=== PATIENT | female | born 1995 | race Caucasian/White ===

== ENCOUNTER 2018-02-26 23:27 | Emergency (ER) | payer OTHER ==
--- OUTSIDE RECORDS SUMMARY | 2018-02-26 23:40 | XMS REPORT | Continuity of Care Document ---
:1995 External Reference #:[id number] Author Name MARLEY Wright Address [address] [place] [address] Care Team Providers Name Role Phone Clara Huynh M.D., R.Natalie Primary Care Physician Unavailable Payers Type Date Identification Numbers Payment Provider Subscriber Policy Number: [id number] [facility] Silvestre Meza PayID: [id number] [place] [address] Advance Directives Description No Information Available Problems Description No Information Family History Date Family Member(s) Problem(s) Comments Onset: (age 28 Years) Father Well And Healthy Mother Anxiety Mother Depression Mother Overweight First Sister Well Social History Type Date Description Comments Sex Unknown Education Highest level completed, currently not attending 10th grade school Lives With The child lives with the DAD EVERY OTHER mother and stepfather.In WEEK-END BUT WITH HIGH The Past Had Visited [employer] CANNOT AFFORD TO BRING THEM TO HIM Smoke-Free Home is not smoke-free Pets several cats Tobacco Use Start: Unknown Patient is a current smoker, smokes every day Parental Involvement Sees dad about one rights currently monthly. 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 Allergies, Adverse Reactions, Alerts Date Description Reaction Status Severity Comments 04/19/2011 Amoxicillin rash Active 06/12/2002 NKDA Inactive Medications Medication Date Status Form Strength Qnty SIG Indications Ordering Provider Neomycin-Polymyx 01/19 Active Solution 1.75-1000 10ml instill 1 H10.9 Orestes in-Gramicidin /2018 0-.025 drop into Heluci junior MD eye every 4 hours for infection Remeron 09/04 Active Tablets 15mg 30tab 1 by mouth F51.04 s every night Chelita Meyer, at bedtime [employer] for sleep and depression Apri 11/16 Active Tablets 0.15-30mg 168ta 1 by mouth Z30.9 -mcg bs every day Chelita Meyer [employer] Fluticasone 12/21 Active Suspension 50mcg/Act 16gm 2 sprays J01.90 wnti Propionate into each Chelita Meyer, nostril [employer] once daily for rhinitis 07/23 Active Chewtabs 0.4-32.5m 90uni 1 po daily Gummies/Dha g ts Chelita Meyer Folic Acid [employer] Nexplanon 09/04 Active Implant 68mg inserted Rochelle09/04/14 Alaina remove [employer]C 09/04/17 Clarithromycin 01/25 Hx Tablets 500mg 20tab 1 by mouth J01.90 s twice a day Chelita Meyer, - for [employer] 02/04 sinusitis Amoxicillin/Clav 12/21 Hx Tablets 875-125mg 20tab 1 by mouth J01.90 ulanate s twice a day Chelita Meyer, Potassium - for 10 days [employer] 12/21 infection Clindamycin HCL 12/21 Hx Capsules 300mg 21cap take 1 J01.90 s capsule by Chelita Meyer, - mouth every [employer] 01/19 8 hours 7 days Mupirocin 09/28 Hx Ointment 2% 22gm 1 dose L01.00 apply to Chelita Meyer, - affected [employer] 10/08 area times a day Duloxetine HCL 09/[address] 60mg 30cap 1 by mouth F41.9 Part s every day Chelita Meyer, - [employer] 01/25 Cetirizine HCL 09/28 Hx Tablets 10mg 30tab 1 by mouth J30.9 s every day Chelita Meyer, - [employer] 12/21 Duloxetine HCL 08/[address] 30mg 30cap take one F41.9 Part s capsule by Chelita Meyer, - mouth every [employer] 09/28 morning for pain and depression And Anxiety Fluoxetine HCL 07/23 Hx Capsules 20mg 30cap 1 by mouth F41.9 Shawnti (PMDD) s daily for Chelita Meyer, - anxiety [employer] 08/27 Mupirocin 03/13 Hx Ointment 2% 22gm apply to L01.00 Thien affected [place] - area 3 III, 07/23 times daily [employer] for 5-7 days Venlafaxine HCL 02/12 Hx Tablets ER 37.5mg 30tab 1 by mouth F41.9 Shawnti ER 24HR s daily Chelita Meyer, - [employer] 07/23 Venlafaxine HCL 10/16 Hx Caps ER 75mg 30cap 1 by mouth F41.9 Shawnti ER 24HR s every day Chelita Meyer, - [employer] 07/23 Therapy Dog 10/16 Hx therapy dog F41.9 nt for anxiety Chelita Meyer, - [employer] 10/26 Meloxicam 09/23 Hx Tablets 15mg 30tab 1 by mouth K04.7 Shant s daily for Chelita Meyer, - pain, take [employer] 07/23 with food Oxycodone-Acetam 09/23 Hx Tablets 5-325mg 14tab 1 or 2 po K04.7 wnti inophen s QHS if Chelita Meyer, - needed for [employer] 10/03 severe pain Chlorhexidine 08/28 Hx Solution 0.12% 600ml rinse and K04.7 Shawnti Gluconate Oral /2015 spit 15ml Chelita Meyer, Rinse - bid [employer] 07/23 Tramadol HCL 08/28 Hx Tablets 50mg 30tab take one K04.7 Shant s tablet by Chelita Meyer, - mouth four [employer] 09/23 times a day as needed for pain; maximum daily dose=4 Venlafaxine HCL 08/22 Hx Caps ER 150mg 90cap take one F41.9 Shawnti ER 24HR s capsule by Chelita Meyer, - mouth daily [employer] 10/16 Sertraline HCL 07/24 Hx Tablets 25mg 30tab 1 by mouth F41.1 s every day Chelita Meyer, - [employer] 10/16 Venlafaxine HCL 07/08 Hx Tablets 75mg 30tab take 1 po F41.9 s every Chelita Meyer, - morning [employer] 08/22 Naproxen Sodium 06/26 Hx Tablets 550mg 60tab 1 by mouth s twice a day Chelita Meyer, - with food [employer] 07/23 if needed for pain Proventil HFA 06/17 Hx Aerosol 108(90Bas 18uni 2 puffs e) ts every 4 Chelita Meyer, - mcg/Act hours if [employer] 07/23 needed for cough, wheeze, shortness of breath Clindamycin HCL 06/17 Hx Capsules 150mg 30cap 1 po tid K04.7 s for 10 days Chelita Meyer, - [employer] 06/27 Tessalon Perles 06/16 Hx Capsules 100mg 45cap 1 take by J20.9 Orestes s mouth Heetderks - capsule MD Oleksandr 10/27 times per day for cough Sertraline HCL 05/15 Hx Tablets 100mg 45tab take one F41.1 s and one Chelita Meyer, - half tablet [employer] 07/24 (150mg) by mouth every day for anxiety Hydroxyzine HCL 05/15 Hx Tablets 10mg 60tab one or two F41.9 i s by mouth Chelita Meyer, - four times [employer] 10/27 a day if needed for anxiety Quetiapine 05/07 Hx Tablets 25mg 30tab 1 by mouth F41.9 s every night Chelita Meyer, - at bedtime [employer] 05/15 for anxiety and sleep Sertraline HCL 05/07 Hx Tablets 50mg 90tab take 1 po F41.1 s qam Chelita Meyer, - [employer] 05/15 Azithromycin 04/24 Hx Tablets 250mg 6tabs take 2 H66.92 Rochelle tablets Alaina, - today then [employer] 05/27 1 tablet /2015 daily for the next 4 days Nix Creme Rinse 03/11 Hx Liquid 1% 59ml apply to hair, rinse Chelita Meyer, - after 10 [employer] 05/27 minutes, comb well with fine tooth comb after rinsing Fluticasone 01/24 Hx Suspension 50mcg/Act 16gm 2 sprays J06.9 Shawnti Propionate into each Chelita Meyer, - nostril [employer] 10/27 once daily for rhinitis Ondansetron 01/24 Hx Tablets 4mg 12tab 1 by mouth A09 Dispers s three times Chelita Meyer, - a day as [employer] 05/27 needed nausea Zofran 12/17 Hx Tablets 4mg 30tab 1 tab by R11.2 Orestes s mouth three He[place]ks - times a day , 01/11 nausea Ibuprofen 11/15 Hx Tablets 600mg 60tab take 1 724.2 s tablet by Chelita Meyer, - mouth three [employer] 07/23 times a day /2016 with food as needed for pain Cyclobenzaprine 11/15 Hx Tablets 5mg 30tab 1 PO QHS 724.2 s prn muscle Chelita Meyer, - spasm [employer] 01/11 Clindamycin HCL 05/11 Hx Capsules 150mg 30cap 1 by mouth s three times Chelita Meyer, - a day for [employer] 05/21 10 days for abscess Sertraline HCL 01/29 Hx Tablets 100mg 135ta 1and 03/16 300.02 bs (150mg) by Chelita Meyer, - mouth every [employer] 05/07 day for depression and anxiety Benzoyl Peroxide 01/29 Hx Liquid 5% 237gm wash face 706.1 wcristina Wash twice daily Chelita Meyer, - [employer] 01/11 Paroex 01/29 Hx Solution 0.12% 150ml rinse and spit 10ml Chelita Meyer, - daily [employer] 01/11 Sertraline HCL 12/08 Hx Tablets 25mg 30tab Take One 300.02 wnt s Tablet By Chelita Meyer, - Mouth Every [employer] 01/29 Day For Week Then Increase To 2 Daily Thereafter Sertraline HCL 11/24 Hx Tablets 25mg 30tab 1 by mouth 300.02 nt s every day Chelita Meyer, - for one [employer] 12/08 week increase to 2 po daily Hydrocortisone 11/24 Hx Lotion 2.5% 1bott apply 782.1 le sparingly RHernando Meyer, - to itchy [employer] 01/11 area 2- times a day Quetiapine 11/03 Hx Tablets 50mg 30tab 1 by mouth 300.02 wnti Fumarate s every night Chelita Meyer, - at bedtime [employer] 11/24 Cefuroxime 10/06 Hx Tablets 500mg 20tab 1 by mouth 382.00 Shawnti Axetil s twice a day Chelita Meyer, - for ear [employer] 10/16 infection Clindamycin HCL 05/15 Hx Capsules 300mg 30cap 1 po tid s for 10 days Chelita Meyer, - for abscess [employer] 05/25 Chlorhexadine 05/15 Hx Solution 0.12% 150ml rinse and Shawnti Gluconate Oral /2013 spit 10ml Chelita Meyer, Rinse - daily [employer] 01/29 Citalopram 04/24 Hx Tablets 40mg 90tab 1 po qd 296.30 Shawnti Hydrobromide s Chelita Meyer, - [employer]IST[employer]C 11/24 Clindamycin HCL 04/24 Hx Capsules 150mg 30cap 1 po tid 528.3 Shawnti s for 10 days Chelita Meyer, - for abscess [employer] 05/04 Ibuprofen 04/24 Hx Tablets 600mg 30tab 1 three 528.3 w s times a day Chelita Meyer, - as needed [employer] 11/15 pain, take with food Citalopram 03/21 Hx Tablets 20mg 30tab 1 po qd for 296.30 wnt Hydrobromide s anxiety and Chelita Meyer, - depression [employer] 04/24 Clindamycin HCL 02/14 Hx Capsules 150mg 30cap 1 po tid 528.3 s for 10 days Chelita Meyer, - for abscess [employer] 03/21 Apri 11/22 Hx Tablets 0.15-30mg 28tab 1 po qd -mcg s Chelita Meyer, - [employer] 11/15 Proair HFA 11/22 Hx Aerosol 108(90Bas 1unit 2 puffs 786.07 e) s every 4-6 Chelita Meyer, - mcg/Act hours as [employer] 01/11 needed wheezing or shortness of breath Clarithromycin 06/14 Hx Tablets 250mg 20tab 1 tablet po 528.5 s bid x 10 Alaina, - days [employer] 11/22 Ibuprofen 06/14 Hx Tablets 600mg 60tab take1 528.5 s tablet qid Alaina, - prn pain, [employer] 04/24 take with food Lorazepam 06/14 Hx Tablets 0.5mg 2tabs 1 tabs po 1 528.5 hour prior Chelita Meyer, - to dental [employer] 01/11 procedure. Saline Nasal 12/28 Hx Solution 0.65% 1Bttl one or two 465.9 wnt [place] /2011 e sprays each Chelita Meyer, - nare prn [employer] 01/11 dryness or congestion Ibuprofen 12/28 Hx Tablets 200mg 90tab 2 po q6hr 465.9 s prn pain Chelita Meyer, - [employer] 01/11 Albuterol HFA 11/23 Hx 90mcg/Inh 1unit 2 puffs 786.07 s q4-6 hours Chelita Meyer, - prn [employer] 11/22 wheezing Clotrimazole 10/23 Hx Cream 1% 30gm apply to rash bid Clinton Pierson M.D. 11/23 Albuterol HFA 08/13 Hx 90mcg/Inh 2Inha 2 puffs 786.07 lers q4-6 hours Alaina, - prn [employer] 11/23 wheezing Excuse From 07/12 Hx Patient was 009.0 [facility] seen in our [place] Huynh office M.Natalie, 11/23 today due R.D. to illness. Should be excused from school today. Cefuroxime 07/06 Hx Tablets 250mg 20tab one po bid 528.3 Rochelle Axetil s for 10 days Alaina, [place] [employer]IST[employer] 11/23 Minocycline HCL 06/10 Hx Capsules 50mg 60cap 1 po bid 706.1 Shawnt s for one Chelita Meyer, - month then [employer] 01/11 1 po daily for acne Retin-A 06/10 Hx Gel 0.025% 1mont apply pea 706.1 Shawnt h sized Chelita Meyer, - amount to [employer] 01/11 face before bed for acne Adderall XR 05/25 Hx Caps ER 20mg 30cap 1 po daily 314.01 Shawnt 24HR s for add Chelita Meyer, - [employer]IST[employer]C 11/24 Prozac 05/25 Hx Capsules 10mg 90cap take one 296.30 s capsule by Chelita Meyer, - mouth every [employer] 03/21 morning for depression Clotrimazole/Bet 05/25 Hx Cream 1-0.05% 1tube apply to 691.8 Shawnti amethasone affected Chelita Meyer Dipropionate - area tid [employer]C 11/23 until resolved Azithromycin 04/19 Hx Tablets 250mg 6tabs take 2 Rochelle tablets Alaina, - today then [employer]IST[employer]C 04/25 1 tablet daily for the next 4 days Amoxicillin 04/18 Hx Tablets 500mg 30tab take 1 034.0 s tablet po Alaina, - tid x 10 [employer] 04/19 days Ovide 11/21 Hx Lotion 0.5% 1bott use as le jelena Meyer, - for head [employer] 11/23 lice, july repeat in 7-9 days if needed Nix Creme Rinse 10/19 Hx Liquid 1% 60ml apply to scalp after Pierson, - washing M.D. 11/21 hair. /2009 leave on 10 min. repeat in 7-10 days. Benzamycin 11/10 Hx Gel 1mont apply pea h sized Chelita Meyer, - amount to [employer]C 11/23 face bid Adderall XR 11/05 Hx Caps ER 10mg 30cap 1 po qd for 314.01 24HR s add Chelita Meyer, - [employer]IST[employer]C 05/25 Benzaclin 11/05 Hx Gel 1-5% 50gm use 706.1 topically A. - bid Damir, 06/10 [facility] Hill-Fr-Ftah 01/30 Hx Chewtabs 1mg 30uni 1 po daily ts for Chelita Meyer, - suppliment [employer] 11/23 Excuse For 12/20 Hx seen in [place] /2007 clinic Kenna, - today for M.D. 01/19 an illness /2007 that required absence from school starting 12/18/06 Keflex 09/18 Hx Capsules 250mg 30cap 1 po tid s for skin Chelita Meyer, - infection [employer] 09/28 Nitrofurantoin 08/24 Hx Capsules 100mg 14cap 1 PO bid 787.01 s For 7 Days Chelita Meyer, - For Urine [employer] 08/31 Infection Adderall 01/20 Hx Tablets 5mg 90tab 1 tab po qd 314.01 Jennifer s A. - Damir, 11/05 code b [facility] Vermox 03/28 Hx Chewtabs 100mg 2unit one po now Jennifer s and repeat A. - in one week Damir, 01/20 [facility] Nkri-pk-ebao 02/09 Hx Solution 1ml po qd V20.2 Jennifer A. - Damir, 05/17 [facility] Xfaj-JD-Qaxr 02/09 Hx Chewtabs 1mg 30uni chew one V20.2 Jennifer ts tab daily A. - , 01/20 [facility] Nasonex 05/01 Hx Suspension 50mcg 1unit 1spray each 381.81 Jennifer Intranasal [place] /2005 s nostril qd A. - , 01/20 [facility] Permethrin 04/03 Hx Lotion 1% 2Oz as directed Santhosh /Guicho Alonzo M.D. 01/20 STR` 02/16 Hx Jennifer A. - , 02/16 [facility] Strattera 02/16 Hx Capsules 10mg 90cap One PO qd 314.01 Jennifer s For Three A. - Days Then 01/20 Increase To [facility] Three Tabs PO qd Pyrethrins 12/18 Hx 0.33% 150cc apply to Jennifer Shampoo area until A. - thoroughly 04/01 wet, [facility] /2005 massage in, wait for 10 mins and water to form lather , shampoo and rinse Permethrin 11/13 Hx Lotion 1% 59ml shampoo 132.0 Jennifer into head A. - leave on 04/01 for 10 mins [facility] /2005 and rinse. Referral To 11/13 Hx evalutate V40.3 Jennifer Therapist and treat A. - behavior 04/01 problems. [facility] /2005 consider family therapy Concerta 08/14 Hx Tablets 18mg 30tab one po qd 314.01 Jennfier s in the am A. - , 02/16 [facility] Ritalin La 07/03 Hx Capsules 10mg 30cap one cap po Jennifer s qd. do not A. - open , 08/14 capsule [facility] Ritalin 05/08 Hx Tablets 5mg 30tab 03/16 tab po 314.01 Jennifer s at 7:30 and A. - 03/16 tad at Damir, 08/14 12:30 pm [facility] /2004 for one week then increase to one po bid Keflex 12/25 Hx Suspension 250mg/5 200cc one tsp po 785.6 [place] /2004 ML qid or two K.W. - tsp. po bid Christopher, 03/24 for 10 days M.D. Ovide 10/17 Hx Lotion 0.5% QS apply to dry hair, A. - air dry. , 09/05 wash 8 [facility] /2004 hours later. may repeat in 7 days if still have live lice Hydrocortisone 11/28 Hx Cream 2.5% 30gm Apply prn For Itching Kenna, - qd M.D. 01/20 Amoxil 06/12 Hx Suspensi 400mg/ml 100ml 1 tsp bid x10 days Carlyle, - [employer] 11/28 Zithromax 12/01 Hx Suspensi 200mg/TSP 15ml 1TSP Today Then 03/16 Carlyle, - TSP Daily [employer] 06/12 For 4 Days Bqry-HX-Ajiv 08/24 Hx Chewtabs O.5 mg 30uni one qd V20.2 ts A. - Damir, 02/09 [facility] Medications Administered in Office Medication Date Status Form Strength Qnty SIG Indications Ordering Provider Medroxyprogesteron 06/21 Administered Injection Lab and e Acetate 1 MG Office (Depo-Provera) Services Injection Medroxyprogesteron 06/21 Administered Injection Lab and e Acetate 1 MG Office (Depo-Provera) Services Injection Medroxyprogesteron 03/26 Administered Injection Lab and e Acetate 1 MG Office (Depo-Provera) Services Injection Medroxyprogesteron 01/08 Administered Injection Lab and e Acetate 1 MG /2013 Office (Depo-Provera) Services Injection Medroxyprogesteron 10/23 Administered Injection Lab and e Acetate 1 MG /2013 Office (Depo-Provera) Services Injection Medroxyprogesteron 08/04 Administered Injection Lab and e Acetate 1 MG /2013 Office (Depo-Provera) Services Injection Varicella Disease 03/29 Administered Injection Faisal /MARLEY Ram Immunizations CPT Code Status Date Vaccine Lot # [id number] Given 02/11/2017 Influenza Virus Vaccine, Quadrivalent, 3 Yr > [id number] Quad, Preserv Free 70163 Given 01/11/2015 Menactra VFC (Meningicoccal Conjugate Vaccine) [id number] 94977 Given 01/11/2015 Varicella (Chicken Pox) Vacc VFC [id number] 02991 Given 01/11/2015 HPV Vaccine 9 - (Gardasil-9) VFC [id number] 66683 Given 11/15/2014 Varicella (Chicken Pox) Vacc VFC [id number] 22541 Given 10/06/2013 HPV Vaccine, Gardasil - VFC [id number] 68484 Given 05/15/2013 HPV Vaccine, Gardasil - VFC [id number] 30799 Given 11/17/2007 Menactra VFC (Meningicoccal Conjugate Vaccine) [id number] 00582 Given 11/17/2007 Tdap VFC (Adacel) [id number] 24061 Given 10/06/2000 MMR (Measles,Mumps,Rubella) 80336 Given 10/06/2000 Opv (Poliovirus,Oral) 64002 Given 10/06/2000 DPT 72685 Given 02/04/1998 Opv (Poliovirus,Oral) 92001 Given 02/04/1998 DPT 47680 Given 02/04/1998 Hib (Hemophilus Influenza B) (Acthib) 69673 Given 08/24/1997 MMR (Measles,Mumps,Rubella) 64845 Given 02/22/1997 Hep B Vaccine, Ped/Adol Dose 3 Dose VFC (Engerix or Recombivax) 42977 Given 02/22/1997 DPT 62311 Given 02/22/1997 Hib (Hemophilus Influenza B) (Acthib) 47430 Given 1996 Opv (Poliovirus,Oral) 51779 Given 1996 DPT 41933 Given 1996 Hib (Hemophilus Influenza B) (Acthib) 38061 Given 1996 DPT 81780 Given 1996 Hib (Hemophilus Influenza B) (Acthib) 06161 Given 1996 Hep B Vaccine, Ped/Adol Dose 3 Dose VFC (Engerix or Recombivax) 86175 Given 1996 Opv (Poliovirus,Oral) 52711 Given 1996 Hep B Vaccine, Ped/Adol Dose 3 Dose VFC (Engerix or Recombivax) 75186 Refused 07/25/2015 Influenza Virus Vaccine, Quadrivalent, 3 Yr > Quad , Preserv Free Vital Signs Date Vital Result Comment 01/25/2018 10:50am Weight 202.00 lb Weight 91.627 kg BP Systolic 110 mmHg BP Diastolic 70 mmHg Heart Rate 80 /min Body Temperature 97.4 F Respiratory Rate 16 /min O2 % BldC Oximetry 98 % 01/19/2018 11:14am Weight 196.00 lb Weight 88.906 kg BP Systolic 108 mmHg BP Diastolic 70 mmHg Heart Rate 78 /min Body Temperature 97.6 F Respiratory Rate 16 /min O2 % BldC Oximetry 98 % 11/16/2017 10:17am Weight 188.00 lb Weight 85.277 kg BP Systolic 110 mmHg BP Diastolic 72 mmHg Heart Rate 78 /min Body Temperature 97.5 F Respiratory Rate 16 /min 12/21/2016 3:59pm Weight 195.00 lb Weight 88.452 kg BP Systolic 110 mmHg BP Diastolic 70 mmHg Heart Rate 72 /min Body Temperature 97.5 F Respiratory Rate 14 /min 09/28/2016 2:56pm Weight 184.00 lb Weight 83.462 kg BP Systolic 100 mmHg BP Diastolic 74 mmHg Heart Rate 92 /min Body Temperature 97.5 F Respiratory Rate 14 /min 08/27/2016 3:19pm Weight 185.00 lb Weight 83.916 kg BP Systolic 116 mmHg BP Diastolic 74 mmHg Heart Rate 85 /min Body Temperature 98.4 F Respiratory Rate 16 /min O2 % BldC Oximetry 98 % 07/23/2016 3:46pm Weight 186.00 lb Weight 84.370 kg BP Systolic 120 mmHg BP Diastolic 72 mmHg Heart Rate 68 /min Body Temperature 98.0 F Respiratory Rate 16 /min 03/24/2016 2:17pm Weight 186.00 lb Weight 84.370 kg BP Systolic 110 mmHg BP Diastolic 60 mmHg Heart Rate 85 /min Body Temperature 97.4 F Respiratory Rate 16 /min O2 % BldC Oximetry 99 % 03/13/2016 2:41pm Weight 190.00 lb Weight 86.184 kg BP Systolic 100 mmHg BP Diastolic 70 mmHg Heart Rate 60 /min Body Temperature 99.0 F Respiratory Rate 12 /min 02/13/2016 3:11pm Weight 190.00 lb Weight 86.184 kg BP Systolic 110 mmHg BP Diastolic 80 mmHg Heart Rate 80 /min Body Temperature 98.3 F Respiratory Rate 12 /min 01/16/2016 3:27pm Weight 194.00 lb Weight 87.998 kg BP Systolic 100 mmHg BP Diastolic 70 mmHg Heart Rate 80 /min Body Temperature 98.1 F 10/31/2015 11:38am Weight 185.00 lb Weight 83.916 kg BP Systolic 91 mmHg BP Diastolic 65 mmHg Heart Rate 80 /min Body Temperature 98.3 F 10/28/2015 2:10pm Weight 190.00 lb Weight 86.184 kg BP Systolic 100 mmHg BP Diastolic 70 mmHg Heart Rate 91 /min Body Temperature 98.5 F ibuprofen at 130pm Respiratory Rate 16 /min 10/17/2015 11:12am Weight 189.00 lb Weight 85.730 kg BP Systolic 120 mmHg BP Diastolic 70 mmHg Heart Rate 64 /min Body Temperature 98.3 F Respiratory Rate 20 /min 09/24/2015 3:01pm Weight 191.00 lb Weight 86.638 kg BP Systolic 114 mmHg BP Diastolic 64 mmHg Heart Rate 88 /min 08/29/2015 4:03pm Weight 189.00 lb Weight 85.730 kg BP Systolic 122 mmHg BP Diastolic 80 mmHg Heart Rate 88 /min Body Temperature 99.3 F 08/23/2015 4:37pm Weight 190.00 lb Weight 86.184 kg BP Systolic 104 mmHg BP Diastolic 64 mmHg Heart Rate 80 /min 07/25/2015 2:54pm Weight 190.00 lb Weight 86.184 kg BP Systolic 96 mmHg BP Diastolic 60 mmHg Heart Rate 92 /min Weight Percentile 96th 07/09/2015 11:34am Weight 190.00 lb Weight 86.184 kg BP Systolic 100 mmHg BP Diastolic 70 mmHg Heart Rate 95 /min Body Temperature 97.8 F Weight Percentile 96th O2 % BldC Oximetry 98 % 06/28/2015 2:51pm Weight 189.00 lb Weight 85.730 kg BP Systolic 124 mmHg BP Diastolic 62 mmHg Heart Rate 90 /min Body Temperature 98.4 F Weight Percentile 96th O2 % BldC Oximetry 98 % 06/18/2015 2:59pm Weight 192.00 lb Weight 87.091 kg BP Systolic 112 mmHg BP Diastolic 70 mmHg Heart Rate 84 /min Body Temperature 97.7 F Weight Percentile 97th O2 % BldC Oximetry 98 % 06/17/2015 10:45am Weight 192.00 lb Weight 87.091 kg BP Systolic 120 mmHg BP Diastolic 81 mmHg Heart Rate 90 /min Body Temperature 98.7 F Weight Percentile 97th O2 % BldC Oximetry 98 % 05/28/2015 11:02am Weight 191.00 lb Weight 86.638 kg BP Systolic 108 mmHg BP Diastolic 70 mmHg Heart Rate 84 /min Body Temperature 97.7 F Weight Percentile 97th 05/16/2015 1:52pm Weight 193.00 lb Weight 87.545 kg BP Systolic 100 mmHg BP Diastolic 54 mmHg Heart Rate 95 /min Weight Percentile 97th 05/07/2015 11:10am Weight 195.00 lb Weight 88.452 kg BP Systolic 116 mmHg BP Diastolic 74 mmHg Heart Rate 112 /min Body Temperature 97.0 F Weight Percentile 97th 04/24/2015 2:31pm Weight 197.00 lb Weight 89.359 kg BP Systolic 140 mmHg BP Diastolic 85 mmHg Heart Rate 108 /min Body Temperature 97.7 F Weight Percentile 97th O2 % BldC Oximetry 98 % 01/24/2015 2:59pm Weight 191.00 lb Weight 86.638 kg BP Systolic 116 mmHg BP Diastolic 68 mmHg Heart Rate 96 /min Body Temperature 98.4 F Weight Percentile 97th 01/11/2015 4:32pm Weight 189.00 lb Weight 85.730 kg BP Systolic 110 mmHg BP Diastolic 80 mmHg Heart Rate 96 /min Height 61 inches 5'1" Height Percentile 10 % Weight Percentile 97th BMI (Body Mass Index) 35.7 kg/m2 Body Mass Index Percentile 98 % Right Visual Acuity Distance 20/25 Left Visual Acuity Distance 20/25 Both Visual Acuity Distance 20/25 12/17/2014 5:25pm Weight 192.00 lb Weight 87.091 kg BP Systolic 112 mmHg BP Diastolic 66 mmHg Heart Rate 92 /min Body Temperature 99.0 F Weight Percentile 97th 11/15/2014 10:52am Weight 190.00 lb Weight 86.184 kg BP Systolic 120 mmHg BP Diastolic 80 mmHg Heart Rate 80 /min Body Temperature 98.1 F Weight Percentile 97th 10/11/2014 11:03am Weight 191.00 lb Weight 86.638 kg BP Systolic 110 mmHg BP Diastolic 70 mmHg Heart Rate 76 /min Weight Percentile 97th Last Menstrual Period [id number] spotting 09/04/2014 3:27pm Weight 187.00 lb Weight 84.823 kg BP Systolic 140 mmHg BP Diastolic 58 mmHg Heart Rate 100 /min Weight Percentile 96th 01/29/2014 3:57pm Weight 163.00 lb Weight 73.937 kg BP Systolic 108 mmHg BP Diastolic 76 mmHg Heart Rate 92 /min Height 61 inches 5'1" Height Percentile 11 % Weight Percentile 92nd BMI (Body Mass Index) 30.8 kg/m2 Body Mass Index Percentile 96 % 12/08/2013 3:04pm Weight 160.00 lb Weight 72.576 kg BP Systolic 114 mmHg BP Diastolic 74 mmHg Heart Rate 92 /min Weight Percentile 9111/24/2013 3:23pm Weight 161.00 lb Weight 73.030 kg BP Systolic 126 mmHg BP Diastolic 74 mmHg Heart Rate 76 /min Weight Percentile 9111/03/2013 3:17pm Weight 157.00 lb Weight 71.215 kg BP Systolic 120 mmHg BP Diastolic 60 mmHg Heart Rate 80 /min Weight Percentile 8910/06/2013 4:14pm Weight 159.00 lb Weight 72.122 kg BP Systolic 125 mmHg BP Diastolic 60 mmHg Heart Rate 88 /min Body Temperature 99.1 F Weight Percentile 90th Last Menstrual Period [id number] Depo 07/31/2013 4:39pm Weight 149.00 lb Weight 67.586 kg BP Systolic 118 mmHg BP Diastolic 54 mmHg Heart Rate 64 /min Body Temperature 98.2 F Weight Percentile 85th 05/15/2013 2:29pm Weight 138.00 lb Weight 62.597 kg BP Systolic 118 mmHg BP Diastolic 60 mmHg Heart Rate 72 /min Weight Percentile 7604/24/2013 3:38pm Weight 136.00 lb Weight 61.690 kg BP Systolic 94 mmHg BP Diastolic 60 mmHg Heart Rate 92 /min Body Temperature 98.9 F Weight Percentile 7403/21/2013 2:00pm Weight 133.00 lb Weight 60.329 kg BP Systolic 92 mmHg BP Diastolic 56 mmHg Heart Rate 78 /min Weight Percentile 71st 02/14/2013 2:49pm Weight 134.00 lb Weight 60.782 kg BP Systolic 116 mmHg BP Diastolic 62 mmHg Heart Rate 96 /min Body Temperature 97.2 F Height 60 inches 5'0" Height Percentile 5 % Weight Percentile 72nd BMI (Body Mass Index) 26.2 kg/m2 Body Mass Index Percentile 89 % 11/22/2012 3:39pm Weight 133.00 lb Weight 60.329 kg BP Systolic 110 mmHg BP Diastolic 70 mmHg Heart Rate 96 /min Body Temperature 99.0 F Height 61 inches 5'1" Height Percentile 11 % Weight Percentile 72nd BMI (Body Mass Index) 25.1 kg/m2 Body Mass Index Percentile 86 % O2 % BldC Oximetry 98 % 06/14/2012 11:53am Weight 131.00 lb Weight 59.422 kg BP Systolic 108 mmHg BP Diastolic 70 mmHg Heart Rate 96 /min Body Temperature 97.1 F Weight Percentile 7112/29/2011 3:05pm Weight 138.00 lb Weight 62.597 kg BP Systolic 120 mmHg BP Diastolic 68 mmHg Heart Rate 72 /min Weight Percentile 80th 11/24/2011 4:05pm Weight 131.00 lb Weight 59.422 kg BP Systolic 118 mmHg BP Diastolic 68 mmHg Heart Rate 68 /min Body Temperature 98.2 F Height 60.25 inches 5'0.25" Height Percentile 8 % Weight Percentile 73rd BMI (Body Mass Index) 25.4 kg/m2 Body Mass Index Percentile 89 % Right Visual Acuity Distance 20/40 Left Visual Acuity Distance 20/25 Both Visual Acuity Distance 20/25 Last Menstrual Period [id number] 08/14/2011 11:35am Weight 123.00 lb Weight 55.793 kg BP Systolic 102 mmHg BP Diastolic 70 mmHg Heart Rate 76 /min Body Temperature 98.1 F Weight Percentile 64th 07/13/2011 1:22pm Weight 123.00 lb Weight 55.793 kg BP Systolic 90 mmHg BP Diastolic 54 mmHg Heart Rate 104 /min Weight Percentile 6507/07/2011 4:52pm Weight 128.00 lb Weight 58.061 kg BP Systolic 100 mmHg BP Diastolic 70 mmHg Body Temperature 97.7 F Weight Percentile 72nd 06/11/2011 3:30pm Weight 120.00 lb Weight 54.432 kg BP Systolic 110 mmHg BP Diastolic 70 mmHg Heart Rate 100 /min Weight Percentile 6105/26/2011 3:29pm Weight 122.00 lb Weight 55.339 kg Heart Rate 72 /min Body Temperature 98.0 F Weight Percentile 6504/18/2011 10:33am Weight 121.00 lb Weight 54.886 kg BP Systolic 100 mmHg BP Diastolic 60 mmHg Body Temperature 98.1 F Weight Percentile 64th 01/23/2010 11:20am Weight 107.00 lb Weight 48.535 kg BP Systolic 100 mmHg BP Diastolic 62 mmHg Heart Rate 60 /min Height 60 inches 5'0" Height Percentile 17 % Weight Percentile 55th BMI (Body Mass Index) 20.9 kg/m2 Body Mass Index Percentile 72 % 11/21/2009 4:55pm Weight 108.00 lb Weight 48.989 kg BP Systolic 102 mmHg BP Diastolic 70 mmHg Heart Rate 88 /min Body Temperature 98.0 F Weight Percentile 5906/12/2009 3:12pm Weight 108.00 lb Weight 48.989 kg BP Systolic 118 mmHg BP Diastolic 80 mmHg Heart Rate 80 /min Weight Percentile 6601/17/2009 2:16pm Weight 106.00 lb Weight 48.082 kg BP Systolic 120 mmHg BP Diastolic 74 mmHg Heart Rate 80 /min Weight Percentile 6911/05/2008 2:45pm Weight 104.00 lb Weight 47.174 kg BP Systolic 98 mmHg BP Diastolic 68 mmHg Heart Rate 96 /min Weight Percentile 6912/21/2007 10:47am Weight 81.00 lb Weight 36.742 kg Body Temperature 97.8 F oral Weight Percentile 4010/21/2007 10:05am Weight 76.00 lb Weight 34.474 kg BP Systolic 96 mmHg BP Diastolic 72 mmHg Heart Rate 90 /min Weight Percentile 3209/19/2007 3:30pm Weight 76.00 lb Weight 34.474 kg Body Temperature 99.3 F Weight Percentile 09/01/2007 1:44pm Weight 74.00 lb Weight 33.566 kg BP Systolic 98 mmHg BP Diastolic 64 mmHg Heart Rate 109 /min Body Temperature 98.5 F Weight Percentile 08/25/2007 3:28pm Weight 75.00 lb Weight 34.020 kg BP Systolic 94 mmHg BP Diastolic 72 mmHg Heart Rate 84 /min Body Temperature 98.5 F Weight Percentile 05/11/2007 3:59pm Weight 76.00 lb Weight 34.474 kg BP Systolic 88 mmHg BP Diastolic 60 mmHg Heart Rate 84 /min Weight Percentile 42nd 02/10/2007 3:41pm Weight 76.00 lb Weight 34.474 kg BP Systolic 94 mmHg BP Diastolic 70 mmHg Heart Rate 76 /min Weight Percentile 48th 01/20/2007 3:38pm Weight 77.00 lb Weight 34.927 kg Heart Rate 86 /min Height 53 inches 4'5" Height Percentile 21 % Weight Percentile 52nd BMI (Body Mass Index) 19.3 kg/m2 Body Mass Index Percentile 80 % Right Visual Acuity Distance 20/25 Left Visual Acuity Distance 20/25 12/02/2006 9:21am Weight 72.00 lb Weight 32.659 kg Body Temperature 97.6 F Height 53 inches 4'5" Height Percentile 24 % Weight Percentile 42nd BMI (Body Mass Index) 18.0 kg/m2 Body Mass Index Percentile 66 % 04/13/2006 9:42am Weight 69.00 lb Weight 31.298 kg Body Temperature 101.0 F Weight Percentile 49th 02/16/2006 2:40pm Weight 67.00 lb Weight 30.391 kg Body Temperature 98.2 F Weight Percentile 47th 02/09/2006 4:13pm Weight 66.00 lb Weight 29.938 kg BP Systolic 98 mmHg BP Diastolic 50 mmHg Heart Rate 84 /min Height 50 inches 4'2" Height Percentile 9 % Weight Percentile 45th BMI (Body Mass Index) 18.6 kg/m2 Body Mass Index Percentile 81 % Right Visual Acuity Distance 20/20 Left Visual Acuity Distance 20/25 05/01/2005 3:10pm Weight 59.00 lb Weight 26.762 kg Body Temperature 97.5 F Weight Percentile 41st 02/16/2005 3:17pm Weight 57.00 lb Weight 25.855 kg BP Systolic 90 mmHg BP Diastolic 60 mmHg Heart Rate 82 /min Respiratory Rate 18 /min Height 49 inches 4'1" Height Percentile 16 % Weight Percentile 39th BMI (Body Mass Index) 16.7 kg/m2 Body Mass Index Percentile 63 % Right Visual Acuity Distance 20/25 Left Visual Acuity Distance 20/25 11/13/2004 3:36pm Weight 56.00 lb Weight 25.402 kg BP Systolic 84 mmHg BP Diastolic 56 mmHg Heart Rate 76 /min Height 47 inches 3'11" Height Percentile 5 % Weight Percentile 42nd BMI (Body Mass Index) 17.8 kg/m2 Body Mass Index Percentile 83 % 09/05/2004 2:09pm Weight 54.00 lb Weight 24.494 kg Height 47 inches 3'11" Height Percentile 7 % Weight Percentile 39th BMI (Body Mass Index) 17.2 kg/m2 Body Mass Index Percentile 76 % 08/14/2004 3:54pm Weight 54.00 lb Weight 24.494 kg BP Systolic 84 mmHg BP Diastolic 58 mmHg Height 47 inches 3'11" Height Percentile 8 % Weight Percentile 40th BMI (Body Mass Index) 17.2 kg/m2 Body Mass Index Percentile 76 % 06/02/2004 4:03pm Weight 55.00 lb Weight 24.948 kg Body Temperature 97.9 F Respiratory Rate 18 /min Weight Percentile 50th 05/08/2004 2:18pm Weight 53.00 lb Weight 24.041 kg Height 47 inches 3'11" Height Percentile 13 % Weight Percentile 44th BMI (Body Mass Index) 16.9 kg/m2 Body Mass Index Percentile 74 % 03/24/2004 3:58pm Weight 55.00 lb Weight 24.948 kg Weight Percentile 56th 12/26/2003 4:22pm Weight 51.00 lb Weight 23.134 kg Body Temperature 98.4 F Weight Percentile 45th 05/03/2003 3:12pm Weight 47.00 lb Weight 21.319 kg Body Temperature 98.6 F Weight Percentile 43rd 12/28/2002 2:49pm Weight 45.00 lb Weight 20.412 kg BP Systolic 90 mmHg BP Diastolic 60 mmHg Heart Rate 80 /min Respiratory Rate 20 /min Height 42.50 inches Height Percentile 5 % Weight Percentile 42nd BMI (Body Mass Index) 17.5 kg/m2 Right Visual Acuity Distance 20/20 Left Visual Acuity Distance 20/20 11/28/2002 3:28pm Weight 46.00 lb Weight 20.866 kg Body Temperature 99.0 F Weight Percentile 50th 10/19/2002 4:07pm Weight 443.00 lb Weight 200.945 kg Body Temperature 98.7 F Weight Percentile >95th 06/27/2002 10:05am Weight 44.00 lb Weight 19.958 kg Body Temperature 99.0 F Weight Percentile 52nd 06/12/2002 3:01pm Weight 44.00 lb Weight 19.958 kg Body Temperature 99.2 F Weight Percentile 53rd 03/07/2002 9:59am Weight 41.00 lb Weight 18.600 kg Body Temperature 98.7 F Weight Percentile 43rd 12/01/2001 10:35am Weight 42.00 lb Weight 19.100 kg Body Temperature 99.9 F Weight Percentile 58th 08/24/2001 3:32pm Weight 39.50 lb BP Systolic 82 mmHg BP Diastolic 50 mmHg Heart Rate 104 /min Height 41 inches Height Percentile 25 % Weight Percentile 48th BMI (Body Mass Index) 16.6 kg/m2 Results Test Date Facility Test Result H/L Range Note GC/Chlamydia 08/27/2016 [facility] Chlamydia Negative Negative Amplified Rna [phone] trachomatis Rna Neisseria gonorrhoeae (GC) Rna Negative Negative CBC Auto 05/15/2015 [facility] White Blood 11.1 10^3/ uL High 3.5-10.8 Diff [phone] Count Red Blood Count 5.12 10^6/uL 4.0-5.4 Hemoglobin 14.8 g/dL 12.0-16.0 Hematocrit 46 % 35-47 Mean Corpuscular Volume 90 fL 80-97 Mean Corpuscular Hemoglobin 29 pg 27-31 Mean Corpuscular HGB Conc 32 g/dL 31-36 Red Cell Distribution Width 14 % 10.5-15 Platelet Count 294 10^3/uL 150-450 Mean Platelet Volume 8 um3 7.4-10.4 Abs Neutrophils 6.6 10^3/uL 1.5-7.7 Abs Lymphocytes 3.5 10^3/uL 1.0-4.8 Abs Monocytes 0.7 10^3/uL 0-0.8 Abs Eosinophils 0.1 10^3/uL 0-0.6 Abs Basophils 0.3 10^3/uL High 0-0.2 Abs Nucleated RBC 0.01 10^3/uL Granulocyte % 59.5 % 38-83 Lymphocyte % 31.2 % 25-47 Monocyte % 6.1 % 1-9 Eosinophil % 0.8 % 0-6 Basophil % 2.4 % High 0-2 Nucleated Red Blood Cells % 0 Comp Metabolic Panel 05/15/2015 [facility] Sodium 137 mmol/L 133-145 [phone] Potassium 3.4 mmol/L Low 3.5-5.0 Chloride 107 mmol/L 101-111 Co2 Carbon Dioxide 22 mmol/L 22-32 Anion Gap 8 mmol/L 2-11 Glucose 91 mg/dL 70-100 Blood Urea Nitrogen 6 mg/dL 6-24 Creatinine 0.84 mg/dL 0.51-0.95 BUN/Creatinine Ratio 7.1 Low 8-20 Calcium 9.9 mg/dL 8.6-10.3 Total Protein 8.4 g/dL 6.4-8.9 Albumin 4.6 g/dL 3.2-5.2 Globulin 3.8 g/dL 2-4 Albumin/Globulin Ratio 1.2 1-3 Total Bilirubin 0.40 mg/dL 0.2-1.0 Alkaline Phosphatase 43 U/L 34-104 Alt 48 U/L 7-52 Ast 33 U/L 13-39 Egfr Non- 88.3 >60 Egfr 113.6 >60 1 Laboratory test 05/15/2015 [facility] Acetaminophen < 15 g/mL 2 finding [phone] Alcohol < 10 mg/dL <10 Salicylate < 2.50 mg/dL <30 TSH (Thyroid Stimulating Horm) 1.92 ?IU/mL 0.34-5.60 Urinalysis Profile 05/15/2015 [facility] Urine Color Yellow [phone] Urine Appearance Cloudy Urine Specific [place] 1.006 Low 1.010-1.030 Urine pH 6.0 5-9 Urine Urobilinogen Negative Negative Urine Ketones Negative Negative Urine Protein Negative Negative Urine Leukocytes Trace Negative Urine Blood 1+ Negative Urine Nitrite Negative Negative Urine Bilirubin Negative Negative Urine Glucose Negative Negative Urine White Blood Cell Trace(0-5/hpf) Absent Urine Red Blood Cell 1+(3-5/hpf) Absent Urine Bacteria 1+ Absent Urine Squamous Epithelial Cell Present Absent Laboratory test 05/15/2015 [facility] HCG < 0.60 3 finding [phone] mIU/mL Urine Drug SCR 05/15/2015 [facility] Amphetamine Ur None None ED & Pain [phone] Screen Detected Detect Clinic Barbiturates Urine Screen None Detected None Detect Benzodiazepine Urine Screen None Detected None Detect Urine Cannabinoids Screen None Detected None Detect Urine Cocaine Screen None Detected None Detect Urine Opiates Screen None Detected None Detect Urine Phencyclidine Screen None Detected None Detect 4 Laboratory test 05/15/2015 [facility] Urine Culture SEE RESULT 5 finding [phone] BELOW Laboratory test 04/24/2015 [facility] Strep Screen NEG Neg finding (607)- - Urine DIP 01/24/2015 In House Lab Specific 1.015 1.01-1.0 (607)- - [place] 2 Urine pH 8 High 5-6 Leukocytes ++ Neg Urine Nitrites NEG Neg Total Protein, Urine NEG Neg Urine Glucose NORM Norm Urine Ketones NEG Neg Urobilinogen NORM Norm Urine Bilirubin NEG Neg Urine Blood 50 High Neg Syphilis Screen 01/11/2015 [facility] Pediatric/ Maternal NO [phone] Syphilis IgG Nonreactive Nonreactive 6 RPR TNP Nonreactive RPR Titer TNP HIV 1/2 AB 01/11/2015 [facility] HIV 1 2 Nonreactive Nonreactive 7 Evaluation [phone] Antibody Laboratory 01/11/2015 [facility] Hemoglobin 5.4 % Less than 6.0 8 test finding [phone] A1c (Glyco HGB) CBC Auto Diff 12/16/2014 [facility] White Blood 10.3 10^3/uL 4.8-10.8 [phone] Count Red Blood Count 4.94 10^6/uL 4.0-5.4 Hemoglobin 14.5 g/dL 12.0-16.0 Hematocrit 44 % 35-47 Mean Corpuscular Volume 90 fL 80-97 Mean Corpuscular Hemoglobin 29 pg 27-31 Mean Corpuscular HGB Conc 33 g/dL 31-36 Red Cell Distribution Width 14 % 10.5-15 Platelet Count 283 10^3/uL 150-450 Mean Platelet Volume 8 um3 7.4-10.4 Abs Neutrophils 5.6 10^3/uL 1.5-7.7 Abs Lymphocytes 3.6 10^3/uL 1.0-4.8 Abs Monocytes 0.9 10^3/uL High 0-0.8 Abs Eosinophils 0.1 10^3/uL 0-0.6 Abs Basophils 0.1 10^3/uL 0-0.2 Abs Nucleated RBC 0 10^3/uL Granulocyte % 54.5 % 38-83 Lymphocyte % 34.9 % 25-47 Monocyte % 8.7 % 1-9 Eosinophil % 1.1 % 0-6 Basophil % 0.8 % 0-2 Nucleated Red Blood Cells % 0 Urinalysis Profile 12/16/2014 [facility] Urine Color Yellow [phone] Urine Appearance Cloudy Urine Specific [place] 1.014 1.010-1.030 Urine pH 7.0 5-9 Urine Urobilinogen Negative Negative Urine Ketones Negative Negative Urine Protein Negative Negative Urine Leukocytes Negative Negative Urine Blood Negative Negative Urine Nitrite Negative Negative Urine Bilirubin Negative Negative Urine Glucose Negative Negative Comp Metabolic Panel 12/16/2014 [facility] Sodium 137 mmol/L 133-145 [phone] Chloride 105 mmol/L 101-111 Co2 Carbon Dioxide 23 mmol/L 22-32 Glucose 82 mg/dL 70-100 Blood Urea Nitrogen 9 mg/dL 6-24 Creatinine 0.87 mg/dL 0.51-0.95 BUN/Creatinine Ratio 10.3 8-20 Calcium 9.9 mg/dL 8.6-10.3 Total Protein 7.9 g/dL 6.4-8.9 Albumin 4.5 g/dL 3.2-5.2 Globulin 3.4 g/dL 2-4 Albumin/Globulin Ratio 1.3 1-3 Total Bilirubin 0.30 mg/dL 0.2-1.0 Alkaline Phosphatase 49 U/L 34-104 Alt 30 U/L 7-52 Egfr Non- 84.8 >60 Egfr 109.1 >60 9 Potassium 3.8 mmol/L 3.5-5.0 Anion Gap 9 mmol/L 2-11 Ast 23 U/L 13-39 Laboratory test 12/16/2014 [facility] Lipase 44 U/L 11.0-82.0 finding [phone] C Reactive Protein 11.18 mg/L High < 5.00 10 Urine DIP 11/15/2014 [facility] House Lab Specific [place] 1.020 1.01-1.02 (607)- - Urine pH 5 5-6 Leukocytes ++ Neg Urine Nitrites NEG Neg Total Protein, Urine TRACE Neg Urine Glucose NORM' Norm Urine Ketones NEG Neg Urobilinogen NORM Norm Urine Bilirubin NEG Neg Urine Blood 50 High Neg Lipid Profile 10/11/2014 [facility] Triglycerides 60 mg/dL 11 (Trig/Chol/HDL) [phone] Cholesterol 106 mg/dL 12 HDL Cholesterol 40.1 mg/dL 13 LDL Cholesterol 54 mg/dL 14 Laboratory test 10/11/2014 [facility] TSH (Thyroid 2.48 ?IU/mL 0.34-5.60 finding [phone] Stim Horm) Hemoglobin A1c (Glyco HGB) 5.9 % Less than 6.0 15 Laboratory test 09/04/2014 [facility] House Lab HCG DIP Test NEG Neg finding (607)- - Laboratory test 08/02/2013 [facility] Beta HCG 15.83 High 0.0-5.0 16 finding [phone] Quantitative IU/mL Laboratory test 07/31/2013 [facility] Beta HCG 58.41 High 0.0-5.0 17 finding [phone] Quantitative IU/mL Laboratory test 07/31/2013 In House Lab HCG DIP Test pos Neg finding (607)- - Urine DIP 09/01/2007 In [facility] Leukocytes NEG Neg (607)- - Urine Nitrites NEG Neg Urine pH 5 5-6 Total Protein, Urine NEG Neg Urine Glucose NORM Norm Urine Ketones NEG Neg Urobilinogen NORM Norm Urine Bilirubin NEG Neg Urine Blood NEG Neg Specific [place] NORM Low 1.01-1.02 Urine Culture And 08/25/2007 [facility] Urine Culture NG 18 Sensitivites [phone] Sensitivi Urine DIP 08/25/2007 [facility] Leukocytes + Neg (607)- - Urine Nitrites NEG Neg Urine pH 6-7 5-6 Total Protein, Urine NEG Neg Urine Glucose NORM Norm Urine Ketones NEG Neg Urobilinogen NORM Norm Urine Bilirubin NEG Neg Urine Blood TRACE Neg Specific [place] N/A Low 1.01-1.02 Laboratory test finding 04/13/2006 [facility] Strep Screen neg Neg (607)- - Laboratory test finding 05/03/2003 [facility] Strep Screen NEG Neg (607)- - Laboratory test finding 06/12/2002 [facility] Strep Screen POS Neg (607)- - Laboratory test finding 08/24/2001 [facility] Hemoglobin 11.3 (607)- - Urine DIP 08/24/2001 [facility] Leukocytes NEG Neg (607)- - Urine Nitrites NEG Neg Urine pH 5 5-6 Total Protein, Urine NGE Neg Urine Glucose NORM Norm Urine Ketones NEG Neg Urobolinogen NORM Norm Urine Bilirubin NEG Neg Urine Blood NE Neg Specific [place] NA Low 1.01-1.02 1 Because ethnic data is not always readily available, this report includes an eGFR for both -Americans and non- Americans. The National Kidney Disease Education Program (NKDEP) does not endorse the use of the MDRD equation for patients that are not between the ages of 18 and 70, are , have extremes of body size, muscle mass, or nutritional status, or are non- or non-. According to the National Kidney Foundation, irrespective of diagnosis, the stage of the disease is based on the level of kidney function: Stage Description GFR(mL/min/1.73 m(2)) 1 Kidney damage with normal or decreased GFR 90 2 Kidney damage with mild decrease in GFR 60-89 3 Moderate decrease in GFR 30-59 4 Severe decrease in GFR 15-29 5 Kidney failure <15 (or dialysis) 2 Therapeutic concentration: <50 ug/mL Toxic concentration: >120 ug/mL 3 <5.0 Negative 5.0 - 25.0 Indeterminate (Repeat testing recommended after 72 hours) >25.0 Positive Perimenopausal women can display HCG levels of up to 20 mIU/mL 4 The urine specimen was tested at the listed cutoffs: Drug class test level (ng/mL) Amphetamines 500 Barbituates 200 Benzodiazepine metabolites 200 Cocaine metabolites 150 Cannabinoids 50 Opiates 300 Pcp 25 This is a screening procedure. Positive results are not confirmed. Specimen was received without chain of custody. Results should be used for medical purposes only. 5 SEE RESULT BELOW Name: SILVESTRE MEZA : [address]: Cornelio Villanueva MD Acct: [id number] Unit: [id number] AGE: 19 Location: ED Re05/15/15 SEX: F Status: DEP ER SPEC: [id number] AVTAR: 05/15/[address]: Cornelio Villanueva MD REQ: [id number] RECD: 05/15/15 STATUS: LIZ MAS DR: Faisal Meyer LABOR[employer]ING _ SOURCE: URINE SPDES: ORDERED: Urine Culture Procedure Result Reported Site Urine Culture Final 05/17/15908 ML No growth of clinically significant organisms * ML - MAIN LAB ([facility]) . END OF REPORT * ML=Testing performed at Main Lab DEPARTMENT OF PATHOLOGY, [address] [place] [address] Hayden Rodriguez M.D. Director [facility] # [id number] 6 Warning: A positive result is not useful for establishing a diagnosis of syphilis. In most situations, such a result may reflect a prior treated infection; a negative result can exclude a diagnosis of syphilis except for incubating or early primary disease. 7 It is recognized that currently available assays for the detection of antibodies to HIV-1 and/or HIV-2 may not detect all infected individuals. HIV antibodies may be undetectable in some stages of the infection and in some clinical conditions. The performance of this assay has not been established for populations of infants or children. Assayed by Chemiluminescence Microparticle Immunoassay on the Siemens Advia Centaur CP. Values obtained with different methods or kits cannot be used interchangeably.The diagnostic specificity of the ADVIA Centaur 1/O/2 Enhanced assay in the low risk population was 99.90% (6052/6058) with a 95% confidence interval of 99.78 to 99.96%. 8 Therapeutic target for the treatment of diabetes Mellitus patients is <7% HBA1C, and in selective patients <6.0%.Please refer to [place] [employer] Diabetic care guidelines for further information. 9 Because ethnic data is not always readily available, this report includes an eGFR for both -Americans and non- Americans. The National Kidney Disease Education Program (NKDEP) does not endorse the use of the MDRD equation for patients that are not between the ages of 18 and 70, are , have extremes of body size, muscle mass, or nutritional status, or are non- or non-. According to the National Kidney Foundation, irrespective of diagnosis, the stage of the disease is based on the level of kidney function: Stage Description GFR(mL/min/1.73 m(2)) 1 Kidney damage with normal or decreased GFR 90 2 Kidney damage with mild decrease in GFR 60-89 3 Moderate decrease in GFR 30-59 4 Severe decrease in GFR 15-29 5 Kidney failure <15 (or dialysis) 10 Acute inflammation: >10.00 11 Desirable <150 Borderline high 150-199 High 200-499 Very High >500 12 Desirable <200 Borderline high 200-239 High >239 13 Low <40 Desirable: 40-60 High: >60 14 Desirable: <100 mg/dL Near Optimal: 100-129 mg/dL Borderline High: 130-159 mg/dL High: 160-189 mg/dL Very High: >189 mg/dL 15 Therapeutic target for the treatment of diabetes Mellitus patients is <7% HBA1C, and in selective patients <6.0%.Please refer to [place] [employer] Diabetic care guidelines for further information. 16 <5.0 Negative 5.0 - 25.0 Indeterminate >25.0 Positive 17 <5.0 Negative 5.0 - 25.0 Indeterminate >25.0 Positive 18 FINAL: NO GROWTH DAY 2 (<1,000 CFU/mL) Procedures Date Code Description Status 11/16/2017 17944 Removal, Non-Biodegradable Drug Delivery Implant Completed 09/04/2014 76309 Insertion, Non-Biodegradable Drug Delivery Implant Completed 06/21/2014 19696 Therapeutic,Prophylactic,Or Diagnostic Inj,SC/Im Specify Completed Drug 03/26/2014 44680 Therapeutic,Prophylactic,Or Diagnostic Inj,SC/Im Specify Completed Drug 01/08/2014 45259 Therapeutic,Prophylactic,Or Diagnostic Inj,SC/Im Specify Completed Drug 10/23/2013 38635 Therapeutic,Prophylactic,Or Diagnostic Inj,SC/Im Specify Completed Drug 08/04/2013 76233 Therapeutic,Prophylactic,Or Diagnostic Inj,SC/Im Specify Completed Drug 07/31/2013 23270 Therapeutic,Prophylactic,Or Diagnostic Inj,SC/Im Specify Completed Drug Encounters Type Date Location Provider Dx Diagnosis Office Visit 01/19/2018 Main Office Orestes Verdin, H10.9 Unspecified 11:15a MD conjunctivitis J06.9 Acute upper respiratory infection, unspecified Office Visit 11/16/2017 10:00a Main Office Faisal Merlos F32.89 Other specified Storm, IT SUPPORT SPECIALIST-C depressive episodes F51.04 Psychophysiologic insomnia Z30.9 Encounter for contraceptive management, unspecified Office Visit 12/21/2016 4:00p Main Office Faisal Merlos J01.90 Acute sinusitis, Storm, IT SUPPORT SPECIALIST-C unspecified F41.9 Anxiety disorder, unspecified Office Visit 09/28/2016 2:45p Main Office Faisal Merlos L01.00 Impetigo, Storm, IT SUPPORT SPECIALIST-C unspecified J30.9 Allergic rhinitis, unspecified F41.9 Anxiety disorder, unspecified Office Visit 08/27/2016 3:00p Main Office Shawnti R. F41.9 Anxiety disorder, Storm, IT SUPPORT SPECIALIST-C unspecified Office Visit 07/23/2016 4:15p Main Office Shawnti R. F41.9 Anxiety disorder, Storm, IT SUPPORT SPECIALIST-C unspecified Office Visit 03/24/2016 2:15p Main Office Shawnti R. F41.9 Anxiety disorder, Storm, IT SUPPORT SPECIALIST-C unspecified Office Visit 03/13/2016 2:30p Main Office Thien Whitfieldtings L01.00 Impetigo, III, IT SUPPORT SPECIALIST-C unspecified Office Visit 02/13/2016 3:00p Main Office Shawnti R. F41.9 Anxiety disorder, Storm, IT SUPPORT SPECIALIST-C unspecified Office Visit 01/16/2016 3:15p Main Office Shawnti R. F41.9 Anxiety disorder, Storm, IT SUPPORT SPECIALIST-C unspecified Office Visit 10/31/2015 11:45a Main Office Shawnti R. K04.7 Periapical abscess Storm, IT SUPPORT SPECIALIST-C without sinus Office Visit 10/28/2015 2:00p Main Office Orestes F32.8 Other depressive MD Lambert episodes Office Visit 10/17/2015 11:00a Main Office Shawnti R. F41.9 Anxiety disorder, Storm, IT SUPPORT SPECIALIST-C unspecified Office Visit 09/24/2015 2:45p Main Office Shawnti R. K04.7 Periapical abscess Storm, IT SUPPORT SPECIALIST-C without sinus F41.9 Anxiety disorder, unspecified Office Visit 08/29/2015 4:00p Main Office Shawnti R. K04.7 Periapical abscess Storm, IT SUPPORT SPECIALIST-C without sinus Office Visit 08/23/2015 4:30p Main Office Shawnti R. F41.9 Anxiety disorder, Storm, IT SUPPORT SPECIALIST-C unspecified Office Visit 07/25/2015 2:45p Main Office Shawnti R. F41.9 Anxiety disorder, Storm, IT SUPPORT SPECIALIST-C unspecified K21.9 Gastro-esophageal reflux disease without esophagitis Office Visit 07/09/2015 11:45a Main Office Shawnti R. F41.9 Anxiety disorder, Storm, IT SUPPORT SPECIALIST-C unspecified Office Visit 06/28/2015 2:45p Main Office Shawnti R. F41.9 Anxiety disorder, Storm, IT SUPPORT SPECIALIST-C unspecified Office Visit 06/18/2015 2:45p Main Office Faisal Merlos J06.9 Acute upper Storm, IT SUPPORT SPECIALIST-C respiratory infection, unspecified K04.7 Periapical abscess without sinus Office Visit 06/17/2015 10:15a Main Office Orestes Verdin, J20.9 Acute bronchitis, MD unspecified Office Visit 05/28/2015 11:00a Main Office Faisal Meyer F41.9 Anxiety disorder, IT SUPPORT SPECIALIST-C unspecified Office Visit 05/16/2015 2:15p Main Office Faisal Meyer, F41.9 Anxiety disorder, IT SUPPORT SPECIALIST-C unspecified Office Visit 05/07/2015 11:15a Main Office Faisal Meyer, F41.9 Anxiety disorder, IT SUPPORT SPECIALIST-C unspecified Office Visit 04/24/2015 2:15p Main Office Rochelle Foley, H66.92 Otitis media, IT SUPPORT SPECIALIST-C unspecified, left ear Office Visit 01/24/2015 3:00p Main Office Faisal Meyer, J06.9 Acute upper IT SUPPORT SPECIALIST-C respiratory infection, unspecified A09 Infectious gastroenteritis and colitis, unspecified Office Visit 01/11/2015 4:15p Main Office Faisal Meyer, Z00.129 Encntr for IT SUPPORT SPECIALIST-C routine child health exam w/o abnormal findings Z23 Encounter for immunization Office Visit 12/17/2014 5:15p Main Office Orestes Verdin, R11.2 Nausea with vomiting, unspecified Office Visit 11/15/2014 10:45a Main Office Faisal Meyer, 724.2 Lumbago IT SUPPORT SPECIALIST-C Z23 Encounter for immunization Office Visit 10/11/2014 10:45a Main Office Faisal Merlos 300.02 Anxiety Disorder Storm, IT SUPPORT SPECIALIST-C Generalized V77.91 Screening For Lipoid Disorders 278.02 Overweight Office Visit 01/29/2014 4:00p Main Office Faisal RHernando 300.02 Anxiety Disorder Storm, IT SUPPORT SPECIALIST-C Generalized 701.8 Hypertrophic & Atrophic Conditions Of Skin Other 706.1 Acne Other Office Visit 12/08/2013 3:00p Main Office Faisal R. 300.02 Anxiety Disorder Storm, IT SUPPORT SPECIALIST-C Generalized Office Visit 11/24/2013 3:00p Main Office Shanentgavino R. 300.02 Anxiety Disorder Storm, IT SUPPORT SPECIALIST-C Generalized 782.1 Rash & Other Nonspec Skin Eruption Office Visit 11/03/2013 3:15p Main Office Garciawntgavino R. 300.02 Anxiety Disorder Storm, IT SUPPORT SPECIALIST-C Generalized Office Visit 10/06/2013 4:15p Main Office Shanentgavino R. 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, IT SUPPORT SPECIALIST-C Major Recurrent Moderate 528.3 Oral Soft Tissue Disease Exc Gingvia & Tongue Cellulit Absce Office Visit 03/21/2013 1:45p Main Office Faisal RHernando 296.30 Depressive Disorder Storm, IT SUPPORT SPECIALIST-C Major Recurrent Unspec Office Visit 02/14/2013 3:15p Main Office Faisal RHernando 296.30 Depressive Disorder Storm, IT SUPPORT SPECIALIST-C Major Recurrent Unspec 528.3 Oral Soft Tissue Disease Exc Gingvia & Tongue Cellulit Absce Office Visit 11/22/2012 3:30p Main Office Faisal Merlos 314.01 Attention Deficit Storm, IT SUPPORT SPECIALIST-C Disorder W/ Hyperactivity 296.30 Depressive Disorder Major Recurrent Unspec Office Visit 06/14/2012 11:45a Main Office Rochelle Foley, 528.5 Oral Soft Tissue IT SUPPORT SPECIALIST-C Excluding Gingiva & Tongue Lip Diseases Office Visit 12/29/2011 2:45p Main Office Faisal Merlos 465.9 URI Upper Storm, IT SUPPORT SPECIALIST-C Respiratory Infections Acute Unspec Sites Office Visit 11/24/2011 3:30p Main Office Shawnti R. V20.2 Routine Or Storm, IT SUPPORT SPECIALIST-C Child Health Check Office Visit 10/24/2011 11:00a Main Office Kaleb Pierson, 110.5 Dermatophytosis Body M.D. Office Visit 08/14/2011 11:30a Main Office Rochelle Foley, 786.07 Wheezing IT SUPPORT SPECIALIST-C Office Visit 07/13/2011 1:15p Main Office Clara Huynh, 009.0 Infectious Colitis M.D., R.D. Enteritis & Gastroenteritis Office Visit 07/07/2011 4:45p Main Office Rochelle Foley, 528.3 Oral Soft Tissue IT SUPPORT SPECIALIST-C Disease Exc Gingvia & Tongue Cellulit Absce Office Visit 06/11/2011 3:15p Main Office Garciawntgavino RHernando 706.1 Acne Other Storm, IT SUPPORT SPECIALIST-C 296.30 Depressive Disorder Major Recurrent Unspec 314.01 Attention Deficit Disorder W/ Hyperactivity Office Visit 05/26/2011 3:30p Main Office Faisal Meyer, 691.8 Dermatitis Atopic & IT SUPPORT SPECIALIST-C Related Conditions Other 314.01 Attention Deficit Disorder W/ Hyperactivity 311 Depressive Disorder Not Elsewhere Spec Office Visit 04/18/2011 10:30a Main Office Rochelle Foley, 034.0 Streptococcal Sore IT SUPPORT SPECIALIST-C Throat Office Visit 01/23/2010 11:00a Main Office Shanentgavino R. 314.01 Attention Deficit Storm, IT SUPPORT SPECIALIST-C Disorder W/ Hyperactivity Office Visit 11/21/2009 4:45p Main Office Garciawntgavino R. 314.01 Attention Deficit Storm, IT SUPPORT SPECIALIST-C Disorder W/ Hyperactivity 706.1 Acne Other Office Visit 06/12/2009 3:15p Main Office Shawntgavino R. 314.01 Attention Deficit Storm, IT SUPPORT SPECIALIST-C Disorder W/ Hyperactivity Office Visit 01/17/2009 2:15p Main Office Jennifer AHernando 314.01 Attention Deficit Damir, Disorder W/ F.N.P.C. Hyperactivity 706.1 Acne Other Office Visit 11/05/2008 2:30p Main Office Jennifer AHernando 314.01 Attention Deficit Damir, Disorder W/ F.N.P.C. Hyperactivity 706.1 Acne Other Office Visit 12/21/2007 10:15a Main Office Kaleb Pierson, 009.1 Colitis Enteritis & M.D. Gastroenteritis Presumed Infectious Orig Office Visit 10/21/2007 4:00p Main Office Jennifer A. 314.01 Attention Deficit Damir, Disorder W/ F.N.P.C. Hyperactivity V40.2 Mental Problem Other Office Visit 09/19/2007 3:30p Main Office Faisal Meyer, 611.9 Breast Disorders IT SUPPORT SPECIALIST-C Unspec Office Visit 09/01/2007 1:30p Main Office Jennifer A. 787.01 Nausea W/ Vomiting Damir, F.N.P.C. 787.91 Diarrhea Office Visit 08/25/2007 3:15p Main Office Faisal Meyer, 599.0 UTI Urinary Tract IT SUPPORT SPECIALIST-C Infection Site Not Spec 465.9 URI Upper Respiratory Infections Acute Unspec Sites Office Visit 05/11/2007 3:30p Main Office Jennifer A. 314.01 Attention Deficit Damir, Disorder W/ F.N.P.C. Hyperactivity Office Visit 02/10/2007 3:30p Main Office Jennifer A. 314.01 Attention Deficit Damir, Disorder W/ F.N.P.C. Hyperactivity Office Visit 01/20/2007 3:30p Main Office Jennifer A. 314.01 Attention Deficit Damir, Disorder W/ F.N.P.C. Hyperactivity Office Visit 12/02/2006 9:15a Main Office Shajohn Sadler. 848.9 Sprains & Strains Storm, IT SUPPORT SPECIALIST-C Unspec Site Office Visit 04/13/2006 9:30a Main Office Jennifer A. 388.70 Otalgia & Earache Damir, Unspec F.N.P.C. 462 Pharyngitis Acute Office Visit 02/16/2006 2:30p Main Office Jennifer A. 787.01 Nausea W/ Damir, F.N.P.C. Vomiting 724.5 Backache Unspec Office Visit 02/09/2006 3:30p Main Office Jennifer A. V20.2 Routine Infant Or Damir, F.N.P.C. Child Health Check Office Visit 05/01/2005 3:00p Main Office Jennifer A. 388.72 Otalgia Referred Damir, F.N.P.C. Pain 381.81 Eustachian Tube Dysfunction 462 Pharyngitis Acute Office Visit 02/16/2005 3:00p Main Office Jenniferjeannie Reich, V20.2 Routine Infant Or F.N.P.C. Child Health Check 314.01 Attention Deficit Disorder W/ Hyperactivity Office Visit 11/13/2004 3:00p Main Office Jennifer A. 132.0 Pediculus Capitis Damir, F.N.P.C. (Head Louse) 314.01 Attention Deficit Disorder W/ Hyperactivity V40.3 Behavioral Problem Other Office Visit 09/05/2004 1:45p Main Office Jennifer A. 314.01 Attention Deficit Damir, Disorder W/ F.N.P.C. Hyperactivity Office Visit 08/14/2004 3:30p Main Office Jennifer A. 314.01 Attention Deficit Damir, Disorder W/ F.N.P.C. Hyperactivity Office Visit 06/02/2004 3:45p Main Office Jennifer A. 314.01 Attention Deficit Damir, Disorder W/ F.N.P.C. Hyperactivity Office Visit 05/08/2004 2:00p Main Office Jennifer A. 314.01 Attention Deficit Damir, Disorder W/ F.N.P.C. Hyperactivity Office Visit 03/24/2004 3:45p Main Office Jennifer A. V40.3 Behavioral Problem Damir, Other F.N.P.C. Office Visit 12/26/2003 3:45p Main Office Adamaris Ferrera 785.6 Lymph Nodes Vijay White Enlargement Office Visit 05/03/2003 2:30p Main Office Jennifer Evans 465.9 URI Upper Damir, Respiratory F.N.P.C. Infections Acute Unspec Sites 462 Pharyngitis Acute 034.0 Streptococcal Sore Throat Office Visit 12/28/2002 2:30p Main Office Jennifer Cristina V20.2 Routine Or Damir, Child Health Check F.N.P.C. Office Visit 11/28/2002 3:00p Main Office Kaleb Pierson M.D. 919.9 Injury Superficial Other Multiple Unspec Infected Office Visit 10/19/2002 4:15p Main Office Santhosh Landeros, 465.9 URI Upper M.D. 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 Respiratory Infections Acute Unspec Sites 786.2 Cough Office Visit 12/01/2001 10:30a Main Office Darlene Tadeo, LABORER [employer] 382.9 Otitis Media Unspec Office Visit 08/24/2001 3:00p Main Office Jennifer Reich, V20.2 Routine Infant Or F.N.P.C. Child Health Check Plan of Treatment 01/25/2018 - Faisal Meyer, [facility]-CJ01.90 Acute sinusitis, unspecifiedNew Medication:Clarithromycin 500 mg - 1 by mouth twice a day for sinusitisComments: will treat with Biaxin, smoking cessation encouraged. encourage xptycoF96.9 Anxiety disorder, unspecifiedRecommendations:continue taking remeron every night
--- NOTE | 2018-02-27 00:13 | ED ---
Respiratory - HPI Summary HPI Summary: The patient is a 22 y/o F presenting to [facility] with a chief complaint of a possible sinus infection starting within the last few days. She has been sneezing with nasal congestion, body aches, right-sided ear ache, and cough. She denies fever. The pain is currently rated 7/10 in severity. She has been taking Ibuprofen to little relief. Hx of asthma. Smoker. - History of Current Complaint Chief Complaint: EDEarPain Stated Complaint: GENERAL ILLNESS Time Seen by Provider: 02/27/18 00:00 Hx Obtained From: Patient Onset/Duration: Gradual Onset, Lasting Days, Still Present Initial Severity: Moderate Current Severity: Moderate Pain Intensity: 7 Character: Cough (Nonproductive) Sputum Amount: None Aggravating Factor(s): Nothing Alleviating Factor(s): Nothing Associated Signs and Symptoms: Nasal Congestion - Allergy/Home Medications Allergies/Adverse Reactions: Allergies Allergy/AdvReac Type Severity Reaction Status Date / Time acetaminophen Allergy Vomiting Verified 02/26/18 23:33 [From Tylenol-Codeine #3] codeine Allergy Vomiting Verified 02/26/18 23:33 [From Tylenol-Codeine #3] MS Penicillins [PCN] Allergy Hives Verified 12/16/14 21:35 Home Medications: Home Medications Mirtazapine TAB* [Remeron TAB*] 15 mg PO BEDTIME 02/27/18 [History Confirmed ] PMH/Surg Hx/FS Hx/Imm Hx Endocrine/Hematology History: Denies: Hx Diabetes Respiratory History: Reports: Hx Asthma Psychiatric History: Reports: Hx Anxiety, Hx Depression Denies: Hx Eating Disorder, Hx of Violent Episodes Against Others - Surgical History Surgery Procedure, Year, and Place: none Infectious Disease History: No Infectious Disease History: Denies: Traveled Outside the [place] in Last 30 Days - Family History Known Family History: Positive: Other - anxiety - mother - Social History Alcohol Use: None Hx Substance Use: Yes Substance Use Type: Reports: Marijuana Hx Tobacco Use: Yes Smoking Status (MU): Current Every Day Smoker Type: Cigarettes Review of Systems Positive: Other - body aches. Negative: Fever Positive: Ear Ache - right, Other - sneezing, nasal congestion Positive: Cough All Other Systems Reviewed And Are Negative: Yes Physical Exam - Summary Physical Exam Summary: Appearance: Well-appearing, Well-nourished, lying in bed comfortable Skin: Warm, dry, no obvious rash Eyes: sclera anicteric, no conjunctival pallor ENT: mucous membranes moist Neck: deferred Respiratory: No signs of respiratory distress Cardiovascular: Appears well perfused, pulses are nml Abdomen: deferred Musculoskeletal: Moving all 4 extremities without obvious discomfort Neurological: Awake and alert, mentation is normal, speech is fluent and appropriate Psychiatric: affect is normal, does not appear anxious or depressed Triage Information Reviewed: Yes Vital Signs On Initial Exam: Initial Vitals Temp Pulse Resp BP Pulse Ox 98.2 F 103 16 148/87 100 02/26/18 23:30 02/26/18 23:30 02/26/18 23:30 02/26/18 23:30 02/26/18 23:30 Vital Signs Reviewed: Yes Diagnostics - Vital Signs Vital Signs Temp Pulse Resp BP Pulse Ox 02/26/18 23:30 98.2 F 103 16 148/87 100 - Laboratory Lab Statement: Any lab studies that have been ordered have been reviewed, and results considered in the medical decision making process. Disposition - Course Course Of Treatment: The patient is a 22 y/o F presenting with a chief complaint of a possible sinus infection starting within the last few days. She has been sneezing with nasal congestion, body aches, right-sided ear ache, and cough. She denies fever. She has been taking Ibuprofen to little relief. Hx of asthma. Smoker. Physical exam is normal. She is diagnosed with rhinosinusitis. I recommended a netipot, Sudafed, and nasal spray for treatment. She is dischaged home with a follow up with her PCP. She agrees with this plan and understands the need for return if symptoms worsen. - Diagnoses Provider Diagnoses: Rhinosinusitis Discharge - Sign-Out/Discharge Documenting (check all that apply): Patient Departure - Patient will be discharged home. - Discharge Plan Condition: Good Disposition: HOME Patient Education Materials: Rhinosinusitis (ED) Referrals: Faisal Meyer, RESPIRATORY EQUIPMENT ASSISTANT [Primary Care Provider] - Additional Instructions: I would recommend trying the conservative measures we discussed such as netipot , sudafed and nasal sprays to promote drainage from the sinuses. After a few days if you aren't getting better go ahead and fill the antibiotic prescription. - Billing Disposition and Condition Condition: GOOD Disposition: Home - Attestation Statements Document Initiated by Radha: Yes Documenting Scribe: Coral Godfrey Provider For Whom Radha is Documenting (Include Credential): Dr. Will Valencia MD Scribe Attestation: I, herson Cottered for Dr. Will Valencia MD on 02/27/18 at 0650. Scribe Documentation Reviewed: Yes Provider Attestation: The documentation as recorded by the Coral ribera accurately reflects the service I personally performed and the decisions made by me, Dr. Will Valencia MD Status of Scribe Document: Viewed
[2018-02-27 00:18] VITALS: BP 137/95
== END 2018-02-27 00:33 | disposition home or self-care (01) ==
LOC: ED 23:27
DX: Z88.6 Allergy status to analgesic agent (principal); Z88.5 Allergy status to narcotic agent; Z88.0 Allergy status to penicillin; F17.210 Nicotine dependence, cigarettes, uncomplicated
CPT/HCPCS: 99282

== ENCOUNTER 2018-03-04 19:58 | Emergency (ER) | payer OTHER ==
--- NOTE | 2018-03-04 21:58 | ED ---
Throat Pain/Nasal Congestion - HPI Summary HPI Summary: 22-year-old female with right sided facial pain for the past couple days. She is being treated for a sinus congestion. She states it feels most like a pressure. She has been using Flonase. She just started clindamycin today. She was given Tylenol threes by her primary but they caused her to vomit. She is here for pain relief. She also notes pressure to her right ear. She denies any dental pain. She has a history of bad teeth. no fevers. no cough. no abdominal pain. no nausea or vomiting. - History of Current Complaint Chief Complaint: EDEarPain Time Seen by Provider: 03/04/18 21:47 - Allergies/Home Medications Allergies/Adverse Reactions: Allergies Allergy/AdvReac Type Severity Reaction Status Date / Time acetaminophen Allergy Vomiting Verified 02/26/18 23:33 [From Tylenol-Codeine #3] codeine Allergy Vomiting Verified 02/26/18 23:33 [From Tylenol-Codeine #3] MS Penicillins [PCN] Allergy Hives Verified 12/16/14 21:35 PMH/Surg Hx/FS Hx/Imm Hx Endocrine/Hematology History: Denies: Hx Diabetes Respiratory History: Reports: Hx Asthma Psychiatric History: Reports: Hx Anxiety, Hx Depression Denies: Hx Eating Disorder, Hx of Violent Episodes Against Others - Surgical History Surgery Procedure, Year, and Place: none Infectious Disease History: No Infectious Disease History: Denies: Traveled Outside the [place] in Last 30 Days - Family History Known Family History: Positive: Other - anxiety - mother - Social History Alcohol Use: None Hx Substance Use: Yes Substance Use Type: Reports: None Hx Tobacco Use: Yes Smoking Status (MU): Current Every Day Smoker Type: Cigarettes Review of Systems Negative: Fever Positive: Sore Throat, Ear Ache, Nasal Discharge Negative: Chest Pain Negative: Shortness Of Breath All Other Systems Reviewed And Are Negative: Yes Physical Exam Triage Information Reviewed: Yes Vital Signs On Initial Exam: Initial Vitals Temp Pulse Resp BP Pulse Ox 98.1 F 90 20 142/79 99 03/04/18 20:13 03/04/18 20:13 03/04/18 20:13 03/04/18 20:13 03/04/18 20:13 Vital Signs Reviewed: Yes Appearance: Positive: Well-Appearing Skin: Positive: Warm, Dry Head/Face: Positive: Normal Head/Face Inspection Eyes: Positive: Normal, EOMI, RENO, Conjunctiva Clear ENT: Positive: Normal ENT inspection, Pharynx normal, TMs normal - fluid behind tm, Sinus tenderness Neck: Positive: Supple, Nontender, No Lymphadenopathy Respiratory/Lung Sounds: Positive: Clear to Auscultation, Breath Sounds Present Cardiovascular: Positive: Normal, RRR Abdomen Description: Positive: Nontender, Soft Bowel Sounds: Positive: Present Musculoskeletal: Positive: Normal Neurological: Positive: Normal Psychiatric: Positive: Normal Diagnostics - Vital Signs Vital Signs Temp Pulse Resp BP Pulse Ox 03/04/18 20:13 98.1 F 90 20 142/79 99 - Laboratory Lab Statement: Any lab studies that have been ordered have been reviewed, and results considered in the medical decision making process. EENT Course/Dx - Course Course Of Treatment: 22-year-old female with right sided facial pain for the past couple days. She is being treated for a sinus congestion. She states it feels most like a pressure. She has been using Flonase. She just started clindamycin today. She was given Tylenol threes by her primary but they caused her to vomit. She is here for pain relief. She also notes pressure to her right ear. She denies any dental pain. She has a history of bad teeth. On exam sinus tenderness noted. Fluid behind TMs. Gave dose of Toradol here. Told to add on Sudafed and nasal saline rinses. Patient understands agrees with plan. - Differential Diagnoses Differential Diagnoses: Dental Caries, Otitis Media, Sinusitis - Diagnoses Provider Diagnoses: Sinusitis Discharge - Sign-Out/Discharge Documenting (check all that apply): Patient Departure - Discharge Plan Condition: Good Disposition: HOME Patient Education Materials: Sinusitis (ED) Referrals: Faisal Meyer [employer]VIRONMENTAL AID [Primary Care Provider] - Additional Instructions: continue medication as already prescribed Add on saline rinses Take sudafed every 12 hours Return to ED if develop any new or worsening symptoms - Billing Disposition and Condition Condition: GOOD Disposition: Home
[2018-03-04] MEDS: Ketorolac INJ* 30 MG/ML 1 ML VIAL IM ONE (22:10)
[2018-03-04 22:17] VITALS: BP 133/64
== END 2018-03-04 22:16 | disposition home or self-care (01) ==
LOC: ED 19:58
DX: J32.9 Chronic sinusitis, unspecified (principal); F17.210 Nicotine dependence, cigarettes, uncomplicated; J45.909 Unspecified asthma, uncomplicated; F32.9 Major depressive disorder, single episode, unspecified; F41.9 Anxiety disorder, unspecified; Z88.0 Allergy status to penicillin; Z88.5 Allergy status to narcotic agent
CPT/HCPCS: 96372; 99282; J1885

== ENCOUNTER 2019-01-23 15:43 | Inpatient (IN) | payer OTHER ==
[2019-01-23] MEDS ORDERED: Dinoprostone* 10 MG VAG.SUPP VAGINAL ONE (16:13)
[2019-01-23] MEDS ORDERED: Buffered Lidocaine 1% SYRIN* 1 ML/SYRINGE INTRADERM ONE (16:13)
[2019-01-23] MEDS ORDERED: Lactated Ringers 1000 ML Bag* 1,000 ML IV ONE (16:13)
--- NOTE | 2019-01-23 16:22 | HP ---
General Information - Reason for Visit induction pre eclampsia - General Information Maternal Age: 23 Grav: 2 Para: 0 SAB: 1 Estimated Due Date: 01/19/19 Determined By: US 15 weeks Maternal Blood Type and Rh: A Positive - Results this Serology/RPR Result: Non-Reactive Rubella Result: Immune HBsAg Result: Negative HIV Result: Negative GBS Culture Result: Negative Past Medical History Delivery History: See Records Pertinent Past Medical History: See Records Pertinent Past Surgical History: See Records Pertinent Family History: See Records - Antepartal Records Antepartal Records: Reviewed, Complicated by: - obesity pre eclampsia Review of Systems Constitutional: Comfortable CV Complaint: No Respiratory: Shortness of Breath: No Gastrointestinal: No Nausea/Vomiting Genitourinary: No Dysuria, No Bleeding, No Leaking Fluid Musculoskeletal: No Complaint Neurological: No Headache Movement: Normal Exam Allergies/Adverse Reactions: Allergies acetaminophen [From Tylenol-Codeine #3] Allergy (Verified 02/26/18 23:33) Vomiting codeine [From Tylenol-Codeine #3] Allergy (Verified 02/26/18 23:33) Vomiting MS Penicillins [PCN] Allergy (Verified 12/16/14 21:35) Hives BP 147/88 P: 107 T:97.9 - Measurements Height: 5 ft Weight: 225 lb Body Mass Index (BMI): 43.9 Pre- Weight: 185 lb - Exam Breast: Breast Exam Deferred CVA: No CVA Tenderness Extremities: Edema Heart: Normal Rhythm/Heart Sounds HEENT: No Significant Findings Lungs: Clear Bilaterally Rectal: Rectal Exam Deferred Reflexes: DTR 2+ Thyroid: No Thyromegaly - Abdominal Exam Abdomen Exam: Non-Tender - Ultrasound/Biophysical Profile Ultrasound Status: Not Done Targeted Exam Findings Cervical Exam: Closed Effacement: Thick Station: High Presenting Part: Vertex Membrane Status: Intact EFM Findings - External Monitor Findings Baseline Heart Rate: 140 External Monitor Findings: Accelerations Present, No Pattern of Variable or Late Decelerations, Variability Moderate Contractions: None Assessment/Plan - Obstetrical Risk Factors Obstetrical Risk Factors: Obesity, PreEclampsia - Plan Plan: Induction, Admit - Anticipate Vaginal Delivery
[2019-01-23 16:55] LABS: ABS Lymphocytes 1.9 10^3/ul (1.0-4.8); ABS Monocytes 0.9 10^3/ul (0-0.8); ABS Neutrophils 8.9 10^3/ul (1.5-7.7); Eosinophil % 0.2 %; Hematocrit 39 % (35-47); Hemoglobin 13.1 g/dL (12.0-16.0); Mean Corpuscular HGB Conc 33 g/dL (31-36); Mean Corpuscular Hemoglobin 29 pg (27-31); Mean Corpuscular Volume 87 fL (80-97); Mean Platelet Volume 7.5 fL (7.4-10.4); Nucleated Red Blood Cells % 0.1; Platelet Count 282 10^3/uL (150-450); Red Blood Count 4.52 10^6 /uL (3.70-4.87); Red Cell Distribution Width 14 % (10-15); White Blood Count 11.7 10^3/uL (3.5-10.8)
[2019-01-23 16:59] LABS: Urine Benzodiazepine Screen None Detected (None Detect); Urine Opiates Screen None Detected (None Detect)
[2019-01-23] MEDS ORDERED: Lactated Ringers 1000 ML Bag* 1,000 ML IV SCH (17:00)
[2019-01-24] MEDS ORDERED: Promethazine INJ(RESTRICTED)* 25 MG/ML 1 ML VIAL IV ONE (05:04)
[2019-01-24] MEDS ORDERED: Nalbuphine* 10 MG/ML 1 ML VIAL IV ONE (05:04)
[2019-01-24] MEDS ORDERED: OBEPIDURAL* 0 ML EPIDURAL ONE (16:10)
[2019-01-24] MEDS ORDERED: Bupivacaine 0.25% SDV PF* 10 ML VIAL INJ ONE (16:15)
[2019-01-24] MEDS ORDERED: fentaNYL* 50 MCG/ML 2 ML VIAL (100 MCG VIAL) ONE (16:23)
[2019-01-24] MEDS ORDERED: Lidocaine 0.5%* 50 ML SDV ONE (16:24)
[2019-01-24] MEDS ORDERED: OBEPIDURAL* 250 ML EPIDURAL ONE (17:10)
[2019-01-24] MEDS ORDERED: Sodium Citrate/Citric Acid* 15 ML UDC PO PRN (18:00)
[2019-01-24] MEDS ORDERED: Lactated Ringers 1000 ML Bag* 1,000 ML IV ONE (18:00)
[2019-01-24] MEDS ORDERED: OBEPIDURAL* 250 ML EPIDURAL SCH (18:00)
[2019-01-24] MEDS ORDERED: Famotidine TAB* 20 MG PO PRN (18:00)
[2019-01-24] MEDS ORDERED: Lactated Ringers 1000 ML Bag* 1,000 ML IV SCH (18:00)
[2019-01-24] MEDS ORDERED: Phenylephrine 40 MCG/ML SYRINGE IV PUSH PRN (18:00)
[2019-01-24] MEDS ORDERED: Oxytocin in LR* 20 UNITS/1,000 ML BAG IVPB SCH (20:00)
[2019-01-25] MEDS ORDERED: Clindamycin 900 MG/D5W BAG(*) 900 MG/50 ML BAG IVPB ONE (01:15)
[2019-01-25] MEDS ORDERED: GENTAMICIN ADULT IVPB ONE (02:00)
[2019-01-25] MEDS ORDERED: NS 0.9% IVPB ONE (02:00)
[2019-01-25] MEDS ORDERED: Morphine PF AMP (0.5MG/ML)* 5 MG/10 ML AMP ONE (02:21)
[2019-01-25] MEDS ORDERED: fentaNYL* 50 MCG/ML 2 ML VIAL (100 MCG VIAL) ONE (02:33)
[2019-01-25] MEDS ORDERED: Midazolam* 1 MG/ML 2 ML VIAL (2 MG) ONE (02:34)
[2019-01-25] MEDS ORDERED: Chloroprocaine 3%* 20 ML VIAL ONE (02:47)
[2019-01-25] MEDS ORDERED: Propofol* 10 MG/ML 20 ML BTL ONE (02:47)
[2019-01-25] MEDS ORDERED: Lidocaine 2% PF * 5 ML VIAL ONE (02:47)
[2019-01-25] MEDS ORDERED: Esmolol* 10 MG/ML 10 ML (100 mg) ONE (02:58)
[2019-01-25] MEDS ORDERED: oxyCODONE/Acetamin 5/325 MG* TAB PO PRN ×4 (03:12→18:30)
[2019-01-25] MEDS ORDERED: Acetaminophen TAB* 325 MG PO PRN (03:12)
[2019-01-25] MEDS ORDERED: Witch Hazel PAD* JAR TOPICAL PRN (03:12)
[2019-01-25] MEDS ORDERED: Glycerin ADULT SUPP PR PRN (03:12)
[2019-01-25] MEDS ORDERED: Dibucaine 1% 28.35 GM TUBE PR PRN (03:12)
[2019-01-25] MEDS ORDERED: Naloxone* 0.4 MG/ML 1 ML VIAL IV PRN ×2 (03:19→03:20)
[2019-01-25] MEDS ORDERED: Ondansetron INJ* 2 MG/ML VIAL IV PRN (03:20)
[2019-01-25] MEDS ORDERED: oxyCODONE TAB* 5 MG TAB PO PRN (03:24)
[2019-01-25] MEDS ORDERED: Lactated Ringers 1000 ML Bag* 1,000 ML IV SCH (04:00)
[2019-01-25] MEDS ORDERED: Ketorolac INJ* 30 MG/ML 1 ML VIAL IV PUSH ONE (04:32)
[2019-01-25] MEDS ORDERED: Ketorolac INJ* 15 MG/ML 1 ML VIAL IV PUSH ONE (04:32)
[2019-01-25] MEDS ORDERED: Influenza VAC *QUAD* 2019-20* 0.5 ML SYRINGE IM ONE (09:00)
[2019-01-25] MEDS: Simethicone TAB* 80 MG TAB.CHEW PO SCH ×4 (10:56→21:06)
[2019-01-25] MEDS: Docusate CAP* 100 MG PO SCH ×3 (11:00→21:07)
[2019-01-25] MEDS ORDERED: Ibuprofen TAB* 400 MG PO SCH (12:00)
[2019-01-25] MEDS: Ibuprofen TAB* 600 MG PO PRN ×2 (14:55→21:07)
[2019-01-25] MEDS ORDERED: Zolpidem TAB* 5 MG PO PRN (21:00)
[2019-01-26] MEDS: Ibuprofen TAB* 600 MG PO PRN ×3 (03:26→18:34)
[2019-01-26 06:49] LABS: ABS Eosinophils 0.1 10^3/ul (0-0.6); ABS Lymphocytes 2.3 10^3/ul (1.0-4.8); ABS Monocytes 1.2 10^3/ul (0-0.8); ABS Neutrophils 9.4 10^3/ul (1.5-7.7); Eosinophil % 0.6 %; Hematocrit 23 % (35-47); Hemoglobin 7.9 g/dL (12.0-16.0); Lymphocyte % 17.9 %; Mean Corpuscular HGB Conc 35 g/dL (31-36); Mean Corpuscular Hemoglobin 31 pg (27-31); Mean Corpuscular Volume 88 fL (80-97); Mean Platelet Volume 7.7 fL (7.4-10.4); Platelet Count 200 10^3/uL (150-450); Red Blood Count 2.59 10^6 /uL (3.70-4.87); Red Cell Distribution Width 14 % (10-15); White Blood Count 13.1 10^3/uL (3.5-10.8)
[2019-01-26] MEDS: Ferrous Gluconate TAB* 324 MG TAB PO SCH ×2 (09:39→20:10)
[2019-01-26] MEDS: Simethicone TAB* 80 MG TAB.CHEW PO SCH ×3 (09:40→21:00)
[2019-01-26] MEDS: Docusate CAP* 100 MG PO SCH ×2 (09:40→20:10)
[2019-01-27] MEDS: Ibuprofen TAB* 600 MG PO PRN ×3 (02:05→15:00)
[2019-01-27] MEDS: Docusate CAP* 100 MG PO SCH (09:00)
[2019-01-27] MEDS: Simethicone TAB* 80 MG TAB.CHEW PO SCH ×2 (09:00→15:00)
[2019-01-27] MEDS: Ferrous Gluconate TAB* 324 MG TAB PO SCH (09:00)
[2019-01-27 09:36] VITALS: BP 128/65
--- NOTE | 2019-02-03 02:00 | OP ---
DATE OF OPERATION: 01/25/19 - ROOM #115 DATE OF : [birth year] SURGEON: Jase Loera MD. REPAIRER SWITCHGEAR: Anjali Balderas CM. ANESTHESIA: Epidural. PRE-OP DIAGNOSES: Intrauterine at 40 weeks with mild preeclampsia and persistent category II tracing and malpresentation. POST-OP DIAGNOSES: Intrauterine at 40 weeks with mild preeclampsia and persistent category II tracing and malpresentation. OPERATIVE PROCEDURE: Primary low-transverse section. ESTIMATED BLOOD LOSS: 700 cc. URINE OUTPUT: Clear. FLUIDS: She received 1200 cc of IV crystalloid fluid. SPECIMEN SENT TO PATHOLOGY: Cord blood. FINDINGS: Delivery of a viable male in the transverse lie with the head in the occiput posterior asynclitic towards the maternal right hip consistent with the ear presentation. The weight was 7 pounds 2 ounces. Apgars were 9 and 9. The placenta was within normal limits. 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 The bowel and bladder were within normal limits. DESCRIPTION OF PROCEDURE: The patient was taken to the operating room where she was identified. She was placed on the operating table where an epidural anesthetic was obtained without difficulty. She was then placed in the supine position with a leftward tilt, prepped and draped in a normal sterile fashion. A Pfannenstiel skin incision was made with a knife and carried through to the underlying layer of fascia. The fascia was then nicked in the midline and extended laterally with curved Burdick scissors. The fascia was then extended superiorly and inferiorly with Bhanu clamps and dissected off sharply from the rectus muscle. The rectus muscle was in the midline bluntly. The peritoneum was identified, grasped with pickups, entered sharply with Metzenbaum scissors and extended superiorly and inferiorly sharply. A bladder blade was inserted into the patient's abdomen. A bladder flap was created using Metzenbaum scissors, over which the bladder blade was then reinserted. A low-transverse incision was made with a knife and extended laterally with bandage scissors. The infant's head then was brought up to the incision by pushing the 's bottom superiorly and the infant's head was then delivered atraumatically. The nose was suctioned. The rest of the 's body was then delivered. The cord was clamped and cut, and the was handed off to waiting arch cushion skiving machine operator. Cord blood was obtained. The placenta was removed manually. The uterus was then exteriorized, cleared of all clot and debris using moist laparotomy sponges. The uterine incision was then closed using 0 Polysorb suture in a running locked fashion with a second imbricating layer of 0 Polysorb suture with good hemostasis noted. The uterus was then returned to the patient's abdomen. The gutters were then cleared of all clot and debris using moist laparotomy sponges. All the sponges were removed from the patient's abdomen. The peritoneum was then closed using 3-0 Polysorb suture in a running fashion. The fascia was closed using 0 Polysorb suture in a running fashion, and the skin was closed with neil. The patient tolerated the procedure well. Sponge, lap, and needle counts were correct x2. She was then transferred to the recovery room area in stable condition. [id number]/[facility] #: [id number] VINCE
== END 2019-01-27 15:30 | disposition home or self-care (01) | DRG 540 ==
LOC: MCHOBOUT 15:43 → MCHOB 16:14
PROVIDERS: ADMIT Obstetrics & Gynecology; ATTEND Obstetrics & Gynecology
PROC: 10907ZC Drainage of Amniotic Fluid, Therapeutic from Products of Conception, Via Natural or Artificial Opening (ICD-10-PCS; 2019-01-25)
PROC: 3E0P7VZ Introduction of Hormone into Female Reproductive, Via Natural or Artificial Opening (ICD-10-PCS; 2019-01-25)
PROC: 4A1HXCZ Monitoring of Products of Conception, Cardiac Rate, External Approach (ICD-10-PCS; 2019-01-25)
PROC: 10H07YZ Insertion of Other Device into Products of Conception, Via Natural or Artificial Opening (ICD-10-PCS; 2019-01-25)
PROC: 10D00Z1 Extraction of Products of Conception, Low, Open Approach (ICD-10-PCS; principal; 2019-01-25 01:48)
DX: O48.0 Post-term pregnancy (principal); O14.94 Unspecified pre-eclampsia, complicating childbirth; O90.81 Anemia of the puerperium; O32.2XX0 Maternal care for transverse and oblique lie, not applicable or unspecified; O34.03 Maternal care for unspecified congenital malformation of uterus, third trimester; O76 Abnormality in fetal heart rate and rhythm complicating labor and delivery; O99.214 Obesity complicating childbirth; Z88.6 Allergy status to analgesic agent; Z88.5 Allergy status to narcotic agent; Z88.0 Allergy status to penicillin; Z3A.40 40 weeks gestation of pregnancy; Z37.0 Single live birth; Z87.891 Personal history of nicotine dependence; Z23 Encounter for immunization; Q51.3 Bicornate uterus
CPT/HCPCS: 36415; 80307; 85025; 86850; 86900; 86901; 90686; A9270-GY; J1580; J1885; J2250; J2300; J2400; J2405; J2550; J2704; J3010; J3490